=== PATIENT | male | born 1970 | race Caucasian/White ===

== ENCOUNTER 2019-12-21 15:01 | Emergency (ER) | payer OTHER ==
[~2019-12-21] VITALS: Ht 177.8 cm; Wt 83.9 kg
[~2019-12-21 15:01] MED LIST: FLOMAX0.4 MG PO; MEDROL DOSEPAK4 MG PO; PERCOCET 325 MG1 TA2 PO
[2019-12-21] MEDS ORDERED: IBU800 MG PO (16:45)
[2019-12-21] MEDS ORDERED: NORCO 5-325 TA1 EACH PO (16:45)
== END 2019-12-21 16:53 | disposition home or self-care (01) ==
LOC: ED 15:01
DX: S02.5XXA Fracture of tooth (traumatic), initial encounter for closed fracture (principal); J45.909 Unspecified asthma, uncomplicated; X58.XXXA Exposure to other specified factors, initial encounter; Y93.89 Activity, other specified; Y92.89 Other specified places as the place of occurrence of the external cause; Y99.8 Other external cause status